=== PATIENT | male | born 1990 | race Caucasian/White ===

== ENCOUNTER 2016-03-12 16:31 | Emergency (ER) | payer OTHER ==
[~2016-03-12] VITALS: Ht 172.7 cm; Wt 83.1 kg
[~2016-03-12 16:31] MED LIST: ALLERGY RELIEF10 M5 PO; MOTRIN800 MG PO; ULTRACET1 TABLET PO; VALIUM5 MG PO
[2016-03-12] MEDS ORDERED: NORCO 7.5/321 TABLET PO (18:41)
[2016-03-12] MEDS ORDERED: MOTRIN800 MG PO (18:41)
[2016-03-12] MEDS ORDERED: VALIUM5 MG PO (18:41)
[2016-03-12 19:02] VITALS: BP 121/85
== END 2016-03-12 19:02 | disposition home or self-care (01) ==
LOC: EME 16:31
DX: S29.011A Strain of muscle and tendon of front wall of thorax, initial encounter (principal); S46.001A Unspecified injury of muscle(s) and tendon(s) of the rotator cuff of right shoulder, initial encounter; S29.012A Strain of muscle and tendon of back wall of thorax, initial encounter; S20.219A Contusion of unspecified front wall of thorax, initial encounter; V47.0XXA Car driver injured in collision with fixed or stationary object in nontraffic accident, initial encounter; F17.200 Nicotine dependence, unspecified, uncomplicated
CPT/HCPCS: 71020; 73030; 93005; 99281; 99283; J1885